=== PATIENT | male | born 1960 | race Caucasian/White ===

== ENCOUNTER 2016-09-01 09:05 | Inpatient (IN) | payer OTHER ==
[2016-09-01 10:55] VITALS: BMI 21.6
--- NOTE | 2016-09-01 11:45 | HP ---
CIWA Score - CIWA Score Nausea/Vomitin Muscle Tremors: 3 Anxiety: 3 Agitation: 3 Paroxysmal Sweats: 1-Minimal Palms Moist Orientation: 0-Oriented Tacttile Disturbances: 2-Mild Itch/Numbness/Burn Auditory Disturbances: 2-Mild Harshness/Frighten Visual Disturbances: 2-Mild Sensitivity Headache: 2-Mild CIWA-Ar Total Score: 21 Admission ROS BHS - HPI Chief Complaint: i need help to stop drinking alcohol Allergies/Adverse Reactions: Allergies Allergy/AdvReac Type Severity Reaction Status Date / Time No Known Allergies Allergy Verified 09/01/16 11:39 History of Present Illness: this 55 years old male with alcohol dependence,withdrawal symptom,never been in detox before stated nee help to stop drinking alcohol syncope alcohol related seen in [facility] last night,refer for alcohol detox - Ebola screening Have you traveled outside of the country in the last 21 days: No Have you had contact with anyone from an Ebola affected area: No Have you been sick,other than usual withdrawal symptoms: No - Review of Systems Constitutional: Loss of Appetite, Malaise, Night Sweats, Changes in sleep, Weakness EENT: reports: Nose Congestion, Dental Problems (loss denture lower upper denture swelling with pian,tenderness right side of neck for days) Cardiac: reports: No Symptoms Reported GI: reports: Nausea, Poor Appetite, Vomiting, Abdominal cramping : reports: No Symptoms Reported Musculoskeletal: reports: Back Pain, Muscle Pain Integumentary: reports: No Symptoms Reported Neuro: reports: Headache, Tremors Endocrine: reports: No Symptoms Reported Hematology: reports: No Symptoms Reported Psychiatric: reports: Judgement Intact, Mood/Affect Appropiate, Orientated x3 Patient History - Patient Medical History Hx Anemia: No Hx Asthma: No Hx Chronic Obstructive Pulmonary Disease (COPD): No Hx Cancer: No Hx Cardiac Disorders: No Hx Congestive Heart Failure: No Hx Hypertension: No Hx Hypercholesterolemia: No Hx Pacemaker: No HX Cerebrovascular Accident: No Hx Seizures: No Hx Dementia: No Hx Diabetes: No Hx Gastrointestinal Disorders: No Hx Liver Disease: No Hx Genitourinary Disorders: No Hx Sexually Transmitted Disorders: No Hx Renal Disease (ESRD): No Hx Thyroid Disease: No Hx Human Immunodeficiency Virus (HIV): No (last teste dyears ago,did notg want to be tested) Hx Hepatitis C: No Hx Depression: No Hx Suicide Attempt: No Hx Bipolar Disorder: No Hx Schizophrenia: No Other Medical History: no suicidal,no homicidal - Patient Surgical History Past Surgical History: No - PPD History Previous Implant?: Yes Documented Results: Negative w/o proof Implanted On Prior R Admission?: No PPD to be Administered?: Yes - Smoking Cessation Smoking history: Current every day smoker Have you smoked in the past 12 months: Yes Aproximately how many cigarettes per day: 20 Cigars Per Day: 0 Hx Chewing Tobacco Use: No Initiated information on smoking cessation: Yes 'Breaking Loose' booklet given: 09/01/16 - Substance & Tx. History Hx Alcohol Use: Yes Hx Substance Use: No Substance Use Type: Alcohol Hx Substance Use Treatment: No Family Disease History - Family Disease History Family History: Denies Admission Physical Exam S - Vital Signs Vital Signs: Vital Signs - 24 hr 09/01/16 10:52 Temperature 97 F L Pulse Rate 92 H Respiratory 20 Rate Blood Pressure 147/93 - Physical General Appearance: Yes: Moderate Distress, Tremorous, Irritable, Sweating, Anxious HEENTM: Yes: Hearing grossly Normal, Normal ENT Inspection, [place], Pharynx Normal , Other (cervical lymphadenitis right size 2x2 cms tenderness loss of denture lower upper denture) Respiratory: Yes: Lungs Clear, Normal Breath Sounds, No Respiratory Distress Neck: Yes: Supple, Trachea in good position (cervial lymphadenitis right 2x2 cms ), Mass (possible cervial lymphadenitis right 2x2 cm stated hat it for 2 days) Breast: Yes: Within Normal Limits Cardiology: Yes: Within Normal Limits, Regular Rhythm, Regular Rate, S1, S2 Abdominal: Yes: Within Normal Limits, Normal Bowel Sounds, Non Tender, Flat, Soft Genitourinary: Yes: Within Normal Limits Back: Yes: Normal Inspection, Muscle Spasm Musculoskeletal: Yes: Back pain, Muscle Pain Extremities: Yes: Normal Inspection, Normal Range of Motion, Tremors 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 - Detox or Rehab [facility] Level of Care: Medically Managed Detox Regimen/Protocol: Librium [facility] Breath Alcohol Content Breath Alcohol Content: 0 Urine Drug Screen - Results Drug Screen Negative: Yes
[2016-09-01] MEDS ORDERED: MENTHOL/PHENOL 1 EACH UD MM PRN (12:07)
[2016-09-01] MEDS ORDERED: P-EPHED 60MG/TRIPROLIDI 2.5MG TABLET PO PRN (12:07)
[2016-09-01] MEDS ORDERED: LOPERAMIDE HCL 2 MG CAPSULE PO PRN (12:07)
[2016-09-01] MEDS ORDERED: MAGNESIUM CITRATE 300 ML BOTTLE PO PRN (12:07)
[2016-09-01] MEDS ORDERED: MAG HYDROX/AL HYDROX/SIMETH 30 ML UNIT-DOSE CUP PO PRN (12:07)
[2016-09-01] MEDS ORDERED: chlordiazePOXIDE HCL 25 MG CAPSULE PO PRN (12:07)
[2016-09-01] MEDS ORDERED: guaiFENesin/D-METHORPHAN HB 10 ML UNIT-DOSE CUPS PO PRN (12:07)
[2016-09-01] MEDS ORDERED: hydrOXYzine PAMOATE 25 MG CAPSULE (FP) PO PRN (12:07)
[2016-09-01] MEDS ORDERED: MAGNESIUM HYDROX 2400MG/30ML ORAL SUSPENSION 30 ML CUP PO PRN (12:07)
[2016-09-01] MEDS ORDERED: chlordiazePOXIDE HCL 25 MG CAPSULE PO ONE (13:03)
[2016-09-01] MEDS: AMOXICILLIN 500 MG CAPSULE (FP) PO SCH ×2 (15:09→22:08)
[2016-09-01] MEDS: ACETAMINOPHEN 325 MG TABLET (FP) PO PRN (15:10)
--- NOTE | 2016-09-01 15:43 | EKG ---
Test Reason : Blood Pressure : / mmHG Vent. Rate : 081 BPM Atrial Rate : 081 BPM P-R Int : 152 ms QRS Dur : 080 ms QT Int : 374 ms P-R-T Axes : 058 033 060 degrees QTc Int : 434 ms NORMAL SINUS RHYTHM NORMAL ECG NO PREVIOUS ECGS AVAILABLE Confirmed by DANNA CARDONA MD ([id number]) on 09/01/2016 3:43:17 PM Referred By: Confirmed By:DANNA CARDONA MD
[2016-09-01] MEDS: chlordiazePOXIDE HCL 25 MG CAPSULE PO SCH ×2 (17:31→22:08)
[2016-09-01 17:39] LABS: URINE APPEARANCE CLEAR; URINE BILIRUBIN NEGATIVE (NEGATIVE); URINE BLOOD NEGATIVE (NEGATIVE); URINE COLOR LTYELLOW; URINE GLUCOSE (UA) 3+ (NEGATIVE); URINE KETONE NEGATIVE (NEGATIVE); URINE LEUK ESTERASE NEGATIVE (NEGATIVE); URINE NITRITE NEGATIVE (NEGATIVE); URINE PROTEIN NEGATIVE (NEGATIVE); URINE UROBILINOGEN NEGATIVE E.U./dl (0.2-1.0)
[2016-09-01] MEDS: THIAMINE HCL 100 MG TABLET (FP) PO SCH (22:08)
[2016-09-01] MEDS: diphenhydrAMINE HCL 50 MG CAPSULE PO PRN (22:09)
[2016-09-01] MEDS: IBUPROFEN 400 MG TABLET (FP) PO PRN (22:10)
[2016-09-02] MEDS: AMOXICILLIN 500 MG CAPSULE (FP) PO SCH ×3 (06:02→22:12)
[2016-09-02] MEDS: chlordiazePOXIDE HCL 25 MG CAPSULE PO SCH ×4 (06:02→22:12)
[2016-09-02] MEDS: IBUPROFEN 400 MG TABLET (FP) PO PRN ×2 (06:04→22:13)
[2016-09-02 10:10] LABS: MCH 32.3 pg (25.7-33.7); MCHC 33.9 g/dl (32.0-35.9); MEAN CELL VOLUME 95.5 fl (80-96); MEAN PLT VOLUME 8.3 fl (7.5-11.1); PLATELET COUNT 294 K/MM3 (134-434); RDW 15.9 % (11.9-15.9); WHITE BLOOD COUNT 13.9 K/mm3 (4.0-10.0)
[2016-09-02 10:22] LABS: ALK PHOS 148 U/L (45-117); ANION GAP 11 (8-16); BILIRUBIN,TOTAL 0.7 mg/dL (0.2-1.0); CALCIUM 9.1 mg/dL (8.5-10.1); CO2 30 mmol/L (21-32); COCKROFT - GAULT 97.57; CREATININE 0.9 mg/dL (0.7-1.3); SGOT/AST 101 U/L (15-37); SGPT/ALT 87 U/L (12-78); TOT PROT 7.3 g/dl (6.4-8.2)
[2016-09-02] MEDS: PRENATAL VITAMINS W/ FOLIC ACID TABLET (FP) PO SCH (10:28)
[2016-09-02 10:29] LABS: GLUCOSE,RANDOM 310 mg/dL (74-106)
--- NOTE | 2016-09-02 10:41 | PN ---
[facility] CIWA - CIWA Score Nausea/Vomitin-No Nausea/No Vomiting Muscle Tremors: 4-Moderate,w/Arms Extend Anxiety: 4-Mod. Anxious/Guarded Agitation: 4-Moderately Restless Paroxysmal Sweats: 1-Minimal Palms Moist Orientation: 0-Oriented Tacttile Disturbances: 3-Moderate Itch/Numb/Burn Auditory Disturbances: 0-None Visual Disturbances: 0-None Headache: 0-None Present CIWA-Ar Total Score: 16 S Progress Note (SOAP) Subjective: ANXIETY,TREMORS, SWEATS, INTERMITTENT SLEEP. Objective: 09/02/16 10:40 Vital Signs Temperature 97.5 F L 09/02/16 09:52 Pulse Rate 78 09/02/16 09:52 Respiratory Rate 18 09/02/16 09:52 Blood Pressure 130/82 09/02/16 09:52 O2 Sat by Pulse Oximetry (%) Laboratory Last Values WBC 13.9 K/mm3 (4.0-10.0) H 09/02/16 06:00 RBC 3.93 M/mm3 (4.00-5.60) L 09/02/16 06:00 Hgb 12.7 GM/dL (11.7-16.9) 09/02/16 06:00 Hct 37.5 % (35.4-49) 09/02/16 06:00 MCV 95.5 fl (80-96) 09/02/16 06:00 MCHC 33.9 g/dl (32.0-35.9) 09/02/16 06:00 RDW 15.9 % (11.9-15.9) 09/02/16 06:00 Plt Count 294 K/MM3 (134-434) 09/02/16 06:00 MPV 8.3 fl (7.5-11.1) 09/02/16 06:00 Sodium 131 mmol/L (136-145) L 09/02/16 06:00 Potassium 4.4 mmol/L (3.5-5.1) 09/02/16 06:00 Chloride 90 mmol/L (98-107) L 09/02/16 06:00 Carbon Dioxide 30 mmol/L (21-32) 09/02/16 06:00 Anion Gap 11 (8-16) 09/02/16 06:00 BUN 10 mg/dL (7-18) 09/02/16 06:00 Creatinine 0.9 mg/dL (0.7-1.3) 09/02/16 06:00 Creat Clearance w eGFR > 60 (>60) 09/02/16 06:00 Random Glucose 310 mg/dL (74-106) H* 09/02/16 06:00 Calcium 9.1 mg/dL (8.5-10.1) 09/02/16 06:00 Total Bilirubin 0.7 mg/dL (0.2-1.0) 09/02/16 06:00 AST 101 U/L (15-37) H 09/02/16 06:00 ALT 87 U/L (12-78) H 09/02/16 06:00 Alkaline Phosphatase 148 U/L (45-117) H 09/02/16 06:00 Total Protein 7.3 g/dl (6.4-8.2) 09/02/16 06:00 Albumin 4.0 g/dl (3.4-5.0) 09/02/16 06:00 Urine Color Ltyellow 09/01/16 15:00 Urine Appearance Clear 09/01/16 15:00 Urine pH 7.0 (5.0-8.0) 09/01/16 15:00 Ur Specific [place] 1.022 (1.001-1.035) 09/01/16 15:00 Urine Protein Negative (NEGATIVE) 09/01/16 15:00 Urine Glucose (UA) 3+ (NEGATIVE) H 09/01/16 15:00 Urine Ketones Negative (NEGATIVE) 09/01/16 15:00 Urine Blood Negative (NEGATIVE) 09/01/16 15:00 Urine Nitrite Negative (NEGATIVE) 09/01/16 15:00 Urine Bilirubin Negative (NEGATIVE) 09/01/16 15:00 Urine Urobilinogen Negative E.U./dl (0.2-1.0) 09/01/16 15:00 Ur Leukocyte Esterase Negative (NEGATIVE) 09/01/16 15:00 Assessment: 09/02/16 10:41 WITHDRAWAL SX Plan: CONTINUE DETOX
[2016-09-02] MEDS ORDERED: metFORMIN HCL 500 MG TABLET (FP) PO ONE (11:11)
[2016-09-02] MEDS ORDERED: INSULIN (NOVOLOG) ASPART 100 UNITS/ML 10ML VIAL SQ ONE ×2 (12:07→23:34)
[2016-09-02] MEDS ORDERED: INSULIN SLIDING SCALE (NOVOLOG) 1 VIAL SQ SCH (16:30)
[2016-09-02] MEDS ORDERED: INSULIN (NOVOLOG) ASPART 100 UNITS/ML 10ML VIAL ONE ×2 (16:58→21:35)
[2016-09-02] MEDS: INSULIN SLIDING SCALE (NOVOLOG) 1 VIAL SQ SCH ×2 (17:20→22:14)
[2016-09-02] MEDS: metFORMIN HCL 500 MG TABLET (FP) PO SCH (17:25)
[2016-09-02] MEDS: THIAMINE HCL 100 MG TABLET (FP) PO SCH (22:12)
[2016-09-02] MEDS: diphenhydrAMINE HCL 50 MG CAPSULE PO PRN (22:12)
[2016-09-03] MEDS: chlordiazePOXIDE HCL 25 MG CAPSULE PO SCH ×2 (05:53→10:23)
[2016-09-03] MEDS: AMOXICILLIN 500 MG CAPSULE (FP) PO SCH ×3 (05:53→22:21)
[2016-09-03] MEDS ORDERED: INSULIN (NOVOLOG) ASPART 100 UNITS/ML 10ML VIAL ONE ×4 (06:29→21:59)
[2016-09-03] MEDS: metFORMIN HCL 500 MG TABLET (FP) PO SCH ×2 (06:36→17:48)
[2016-09-03] MEDS: INSULIN SLIDING SCALE (NOVOLOG) 1 VIAL SQ SCH ×4 (06:40→22:21)
[2016-09-03] MEDS: PRENATAL VITAMINS W/ FOLIC ACID TABLET (FP) PO SCH (10:23)
[2016-09-03 10:54] LABS: ALBUMIN 3.1 g/dl (3.4-5.0); SGPT/ALT 56 U/L (12-78)
[2016-09-03 11:01] LABS: ALK PHOS 119 U/L (45-117); ANION GAP 8 (8-16); BILIRUBIN,TOTAL 0.5 mg/dL (0.2-1.0); CALCIUM 8.4 mg/dL (8.5-10.1); CO2 27 mmol/L (21-32); COCKROFT - GAULT 125.45; CREATININE 0.7 mg/dL (0.7-1.3); GLUCOSE,RANDOM 284 mg/dL (74-106); SGOT/AST 34 U/L (15-37); TOT PROT 6.1 g/dl (6.4-8.2)
--- NOTE | 2016-09-03 14:45 | PN ---
[facility] CIWA - CIWA Score Nausea/Vomitin-Mild Nausea/No Vomiting Muscle Tremors: 4-Moderate,w/Arms Extend Anxiety: 4-Mod. Anxious/Guarded Agitation: 3 Paroxysmal Sweats: 3 Orientation: 4Disoriented Place/Person Tacttile Disturbances: 2-Mild Itch/Numbness/Burn Auditory Disturbances: 0-None Visual Disturbances: 0-None Headache: 3-Moderate CIWA-Ar Total Score: 24 S Progress Note (SOAP) Subjective: Sweating, H/A, Tremors. Objective: PT. A & O X 2 (DISORIENTED ABOUT LOCATION). PT. OBSERVED AMBULATING ON UNIT. 09/03/16 14:41 Vital Signs Temperature 95.2 F L 09/03/16 13:20 Pulse Rate 90 09/03/16 13:20 Respiratory Rate 20 09/03/16 13:20 Blood Pressure 134/84 09/03/16 13:20 O2 Sat by Pulse Oximetry (%) Laboratory Last Values WBC 13.9 K/mm3 (4.0-10.0) H 09/02/16 06:00 RBC 3.93 M/mm3 (4.00-5.60) L 09/02/16 06:00 Hgb 12.7 GM/dL (11.7-16.9) 09/02/16 06:00 Hct 37.5 % (35.4-49) 09/02/16 06:00 MCV 95.5 fl (80-96) 09/02/16 06:00 MCHC 33.9 g/dl (32.0-35.9) 09/02/16 06:00 RDW 15.9 % (11.9-15.9) 09/02/16 06:00 Plt Count 294 K/MM3 (134-434) 09/02/16 06:00 MPV 8.3 fl (7.5-11.1) 09/02/16 06:00 Sodium 135 mmol/L (136-145) L 09/03/16 08:00 Potassium 4.4 mmol/L (3.5-5.1) 09/03/16 08:00 Chloride 100 mmol/L (98-107) D 09/03/16 08:00 Carbon Dioxide 27 mmol/L (21-32) 09/03/16 08:00 Anion Gap 8 (8-16) 09/03/16 08:00 BUN 15 mg/dL (7-18) D 09/03/16 08:00 Creatinine 0.7 mg/dL (0.7-1.3) D 09/03/16 08:00 Creat Clearance w eGFR > 60 (>60) 09/03/16 08:00 POC Glucometer 145 UNITS (()) 09/03/16 05:54 Random Glucose 284 mg/dL (74-106) H 09/03/16 08:00 Hemoglobin A1c % 10.3 % (4.8-6.0) H 09/03/16 08:00 Calcium 8.4 mg/dL (8.5-10.1) L 09/03/16 08:00 Total Bilirubin 0.5 mg/dL (0.2-1.0) D 09/03/16 08:00 AST 34 U/L (15-37) D 09/03/16 08:00 ALT 56 U/L (12-78) D 09/03/16 08:00 Alkaline Phosphatase 119 U/L (45-117) H 09/03/16 08:00 Total Protein 6.1 g/dl (6.4-8.2) L 09/03/16 08:00 Albumin 3.1 g/dl (3.4-5.0) L D 09/03/16 08:00 Urine Color Ltyellow 09/01/16 15:00 Urine Appearance Clear 09/01/16 15:00 Urine pH 7.0 (5.0-8.0) 09/01/16 15:00 Ur Specific [place] 1.022 (1.001-1.035) 09/01/16 15:00 Urine Protein Negative (NEGATIVE) 09/01/16 15:00 Urine Glucose (UA) 3+ (NEGATIVE) H 09/01/16 15:00 Urine Ketones Negative (NEGATIVE) 09/01/16 15:00 Urine Blood Negative (NEGATIVE) 09/01/16 15:00 Urine Nitrite Negative (NEGATIVE) 09/01/16 15:00 Urine Bilirubin Negative (NEGATIVE) 09/01/16 15:00 Urine Urobilinogen Negative E.U./dl (0.2-1.0) 09/01/16 15:00 Ur Leukocyte Esterase Negative (NEGATIVE) 09/01/16 15:00 RPR Titer Nonreactive (NONREACTIVE) 09/02/16 06:00 LABS NOTED. 09/03/16 14:46 Assessment: 09/03/16 14:43 WITHDRAWAL SYMPTOMS. Plan: POSITIVE ADMISSION PPD (6 MM) NOTED. PT. TO HAVE CXR IN AM PRIOR TO DISCHARGE ON 09/04/2016. CONTINUE DETOX. ADVISED PATIENT TO FOLLOW-UP WITH COORDINATOR OF ONLINE PROGRAMS / REHAB MEDICAL PROVIDER AFTER DISCHARGE FROM DETOX FOR GENERAL MEDICAL ASSESSMENT AND FOR ABNORMAL ADMISSION LAB VALUES AND FOR POSITIVE PPD.
[2016-09-03] MEDS: chlordiazePOXIDE 5 MG CAPSULE PO SCH ×2 (17:48→22:21)
[2016-09-03] MEDS: THIAMINE HCL 100 MG TABLET (FP) PO SCH (22:21)
[2016-09-03] MEDS: ACETAMINOPHEN 325 MG TABLET (FP) PO PRN (22:23)
[2016-09-04] MEDS: AMOXICILLIN 500 MG CAPSULE (FP) PO SCH ×3 (05:51→22:24)
[2016-09-04] MEDS: chlordiazePOXIDE 5 MG CAPSULE PO SCH ×2 (05:51→10:17)
[2016-09-04] MEDS: IBUPROFEN 400 MG TABLET (FP) PO PRN (06:27)
[2016-09-04] MEDS: metFORMIN HCL 500 MG TABLET (FP) PO SCH ×2 (06:43→17:02)
[2016-09-04] MEDS: INSULIN SLIDING SCALE (NOVOLOG) 1 VIAL SQ SCH ×4 (06:44→22:24)
[2016-09-04] MEDS ORDERED: INSULIN (NOVOLOG) ASPART 100 UNITS/ML 10ML VIAL ONE ×4 (06:49→22:10)
--- NOTE | 2016-09-04 09:50 | PN ---
[facility] Progress Note (SOAP) Subjective: anxiety, interrupted sleep, sweats, tremors, cough Objective: 09/04/16 09:48 Vital Signs - 8 hr 09/04/16 09/04/16 03:30 06:08 Temperature 96.1 F L Pulse Rate 79 Respiratory 18 18 Rate Blood Pressure 130/85 Laboratory Tests 09/01/16 09/02/16 09/02/16 15:00 06:00 06:00 WBC 13.9 H RBC 3.93 L Hgb 12.7 Hct 37.5 MCV 95.5 MCHC 33.9 RDW 15.9 Plt Count 294 MPV 8.3 Sodium 131 L Potassium 4.4 Chloride 90 L Carbon Dioxide 30 Anion Gap 11 BUN 10 Creatinine 0.9 Creat Clearance w eGFR > 60 POC Glucometer Random Glucose 310 H* Hemoglobin A1c % Calcium 9.1 Total Bilirubin 0.7 AST 101 H ALT 87 H Alkaline Phosphatase 148 H Total Protein 7.3 Albumin 4.0 Urine Color Ltyellow Urine Appearance Clear Urine pH 7.0 Ur Specific [place] 1.022 Urine Protein Negative Urine Glucose (UA) 3+ H Urine Ketones Negative Urine Blood Negative Urine Nitrite Negative Urine Bilirubin Negative Urine Urobilinogen Negative Ur Leukocyte Esterase Negative RPR Titer 09/02/16 09/02/16 09/02/16 06:00 11:22 16:17 WBC RBC Hgb Hct MCV MCHC RDW Plt Count MPV Sodium Potassium Chloride Carbon Dioxide Anion Gap BUN Creatinine Creat Clearance w eGFR POC Glucometer > 600 221 Random Glucose Hemoglobin A1c % Calcium Total Bilirubin AST ALT Alkaline Phosphatase Total Protein Albumin Urine Color Urine Appearance Urine pH Ur Specific [place] Urine Protein Urine Glucose (UA) Urine Ketones Urine Blood Urine Nitrite Urine Bilirubin Urine Urobilinogen Ur Leukocyte Esterase RPR Titer Nonreactive 09/03/16 09/03/16 09/03/16 05:54 08:00 08:00 WBC RBC Hgb Hct MCV MCHC RDW Plt Count MPV Sodium 135 L Potassium 4.4 Chloride 100 D Carbon Dioxide 27 Anion Gap 8 BUN 15 D Creatinine 0.7 D Creat Clearance w eGFR > 60 POC Glucometer 145 Random Glucose 284 H Hemoglobin A1c % 10.3 H Calcium 8.4 L Total Bilirubin 0.5 D AST 34 D ALT 56 D Alkaline Phosphatase 119 H Total Protein 6.1 L Albumin 3.1 L D Urine Color Urine Appearance Urine pH Ur Specific [place] Urine Protein Urine Glucose (UA) Urine Ketones Urine Blood Urine Nitrite Urine Bilirubin Urine Urobilinogen Ur Leukocyte Esterase RPR Titer 09/03/16 09/03/16 09/04/16 16:44 21:20 05:48 WBC RBC Hgb Hct MCV MCHC RDW Plt Count MPV Sodium Potassium Chloride Carbon Dioxide Anion Gap BUN Creatinine Creat Clearance w eGFR POC Glucometer 312 204 292 Random Glucose Hemoglobin A1c % Calcium Total Bilirubin AST ALT Alkaline Phosphatase Total Protein Albumin Urine Color Urine Appearance Urine pH Ur Specific [place] Urine Protein Urine Glucose (UA) Urine Ketones Urine Blood Urine Nitrite Urine Bilirubin Urine Urobilinogen Ur Leukocyte Esterase RPR Titer elevated glucose, a1c, lfts, PPD+ Assessment: 09/04/16 09:49 withdraal sx present, PPD+, diabetes Plan: cont detox, diabetic diet, CXR prior to discharge in AM,
[2016-09-04] MEDS: PRENATAL VITAMINS W/ FOLIC ACID TABLET (FP) PO SCH (10:17)
[2016-09-04] MEDS: ACETAMINOPHEN 325 MG TABLET (FP) PO PRN (11:26)
[2016-09-04] MEDS: chlordiazePOXIDE HCL 10 MG CAPSULE PO SCH ×2 (17:01→22:24)
[2016-09-04] MEDS: THIAMINE HCL 100 MG TABLET (FP) PO SCH (22:24)
[2016-09-04] MEDS: diphenhydrAMINE HCL 50 MG CAPSULE PO PRN (22:27)
[2016-09-05] MEDS: chlordiazePOXIDE HCL 10 MG CAPSULE PO SCH ×2 (05:58→10:18)
[2016-09-05] MEDS: AMOXICILLIN 500 MG CAPSULE (FP) PO SCH ×2 (05:58→13:03)
[2016-09-05] MEDS ORDERED: INSULIN (NOVOLOG) ASPART 100 UNITS/ML 10ML VIAL ONE ×2 (07:26→11:23)
[2016-09-05] MEDS: metFORMIN HCL 500 MG TABLET (FP) PO SCH (07:27)
[2016-09-05] MEDS: INSULIN SLIDING SCALE (NOVOLOG) 1 VIAL SQ SCH ×2 (07:28→11:48)
[2016-09-05] MEDS: IBUPROFEN 400 MG TABLET (FP) PO PRN (07:36)
[2016-09-05 09:21] VITALS: BP 136/84; PULSE 107; TEMP 97.6
[2016-09-05] MEDS: PRENATAL VITAMINS W/ FOLIC ACID TABLET (FP) PO SCH (10:30)
--- NOTE | 2016-09-05 11:44 | DS ---
[facility] Detox Discharge Summary Admission Date: 09/01/16 Discharge Date: 09/05/16 - History Present History: Alcohol Dependence Pertinent Past History: Cervical Lymphadenitis - Physical Exam Results Vital Signs: Vital Signs Temperature 97.6 F 09/05/16 09:20 Pulse Rate 107 H 09/05/16 09:20 Respiratory Rate 20 09/05/16 09:20 Blood Pressure 136/84 09/05/16 09:20 O2 Sat by Pulse Oximetry (%) Pertinent Admission Physical Exam Findings: Withdrawal sx. Laboratory Last Values WBC 13.9 K/mm3 (4.0-10.0) H 09/02/16 06:00 RBC 3.93 M/mm3 (4.00-5.60) L 09/02/16 06:00 Hgb 12.7 GM/dL (11.7-16.9) 09/02/16 06:00 Hct 37.5 % (35.4-49) 09/02/16 06:00 MCV 95.5 fl (80-96) 09/02/16 06:00 MCHC 33.9 g/dl (32.0-35.9) 09/02/16 06:00 RDW 15.9 % (11.9-15.9) 09/02/16 06:00 Plt Count 294 K/MM3 (134-434) 09/02/16 06:00 MPV 8.3 fl (7.5-11.1) 09/02/16 06:00 Sodium 135 mmol/L (136-145) L 09/03/16 08:00 Potassium 4.4 mmol/L (3.5-5.1) 09/03/16 08:00 Chloride 100 mmol/L (98-107) D 09/03/16 08:00 Carbon Dioxide 27 mmol/L (21-32) 09/03/16 08:00 Anion Gap 8 (8-16) 09/03/16 08:00 BUN 15 mg/dL (7-18) D 09/03/16 08:00 Creatinine 0.7 mg/dL (0.7-1.3) D 09/03/16 08:00 Creat Clearance w eGFR > 60 (>60) 09/03/16 08:00 POC Glucometer 227 UNITS (()) 09/05/16 05:56 Random Glucose 284 mg/dL (74-106) H 09/03/16 08:00 Hemoglobin A1c % 10.3 % (4.8-6.0) H 09/03/16 08:00 Calcium 8.4 mg/dL (8.5-10.1) L 09/03/16 08:00 Total Bilirubin 0.5 mg/dL (0.2-1.0) D 09/03/16 08:00 AST 34 U/L (15-37) D 09/03/16 08:00 ALT 56 U/L (12-78) D 09/03/16 08:00 Alkaline Phosphatase 119 U/L (45-117) H 09/03/16 08:00 Total Protein 6.1 g/dl (6.4-8.2) L 09/03/16 08:00 Albumin 3.1 g/dl (3.4-5.0) L D 09/03/16 08:00 Urine Color Ltyellow 09/01/16 15:00 Urine Appearance Clear 09/01/16 15:00 Urine pH 7.0 (5.0-8.0) 09/01/16 15:00 Ur Specific [place] 1.022 (1.001-1.035) 09/01/16 15:00 Urine Protein Negative (NEGATIVE) 09/01/16 15:00 Urine Glucose (UA) 3+ (NEGATIVE) H 09/01/16 15:00 Urine Ketones Negative (NEGATIVE) 09/01/16 15:00 Urine Blood Negative (NEGATIVE) 09/01/16 15:00 Urine Nitrite Negative (NEGATIVE) 09/01/16 15:00 Urine Bilirubin Negative (NEGATIVE) 09/01/16 15:00 Urine Urobilinogen Negative E.U./dl (0.2-1.0) 09/01/16 15:00 Ur Leukocyte Esterase Negative (NEGATIVE) 09/01/16 15:00 RPR Titer Nonreactive (NONREACTIVE) 09/02/16 06:00 labs noted - Treatment Hospital Course: Detox Protocol Followed, Detoxed Safely, Responded well, Discharged Condition Good, Rehab Referral Accepted Patient has Accepted a Rehab Referral to: [facility] rehab - Medication Discharge Medications: Ambulatory Orders Metformin HCl [Glucophage] 1,000 mg PO BID 09/02/16 - Diagnosis (1) Alcohol dependence with uncomplicated withdrawal Current Visit: Yes Status: Acute (2) Cervical lymphadenitis Current Visit: Yes Status: Acute (3) Nicotine dependence Current Visit: Yes Status: Acute Qualifiers: Nicotine product type: cigarettes Substance use status: uncomplicated Qualified Code(s): F17.210 - Nicotine dependence, cigarettes, uncomplicated (4) PPD positive Current Visit: Yes Status: Acute (5) Type II diabetes mellitus Current Visit: Yes Status: Acute Qualifiers: Diabetes mellitus complication status: without complication Diabetes mellitus terminal gauger insulin use: without terminal gauger use Qualified Code(s): E11.9 - Type 2 diabetes mellitus without complications - AMA Did Patient Leave Against Medical Advice: No
== END 2016-09-05 13:04 | disposition home or self-care (01) | DRG 775 ==
LOC: YASAS 09:05 → Y3N 12:39
PROVIDERS: ADMIT Internal Medicine; ATTEND Internal Medicine
PROC: HZ2ZZZZ Detoxification Services for Substance Abuse Treatment (ICD-10-PCS; principal; 2016-09-01)
DX: F10.230 Alcohol dependence with withdrawal, uncomplicated (principal); F17.210 Nicotine dependence, cigarettes, uncomplicated; R76.11 Nonspecific reaction to tuberculin skin test without active tuberculosis; E11.65 Type 2 diabetes mellitus with hyperglycemia; I88.8 Other nonspecific lymphadenitis; R94.5 Abnormal results of liver function studies; Z86.79 Personal history of other diseases of the circulatory system
CPT/HCPCS: 36415; 71020-TC; 80053; 81003; 83036; 85027; 86593; 93005; 93010